=== PATIENT | female | born 1945 | race Caucasian/White ===

== ENCOUNTER 2017-12-21 07:50 | Day surgery (SDC) | payer OTHER ==
[2017-12-07 15:42] VITALS: BMI 23.0
--- NOTE | 2017-12-15 09:37 | HP ---
Admitting History and Physical - Primary Care Physician PCP: Virgilio Hager - Admission Chief Complaint: Right breast cancer History of Present Illness: 72 year old postmenapausal female who underwent a mammogram 09/2017 showing assymetry right breast 10:00. US showed 1t1o9cg density right breast 9:00 and left 1:00 density corresponding to calcifications on mammography. 09/2017 Right breast Us core at 9:00 showed Invasive ductal carcinoma ER/MT+ her 2 -. Left breast core bx showed a fibroadenoma. Breast MRI showed localized new right breast cancer 11/2017. History Source: Patient Limitations to Obtaining History: No Limitations - Past Medical History Cardiovascular: Yes: Hyperlipdemia Gastrointestinal: Yes: GERD - Smoking History Smoking history: Former smoker Have you smoked in the past 12 months: No Aproximately how many cigarettes per day: 1 If you are a former smoker, when did you quit?: 1984 - Alcohol/Substance Use Hx Alcohol Use: Yes (SOCIAL) Home Medications - Allergies Allergies/Adverse Reactions: Allergies Allergy/AdvReac Type Severity Reaction Status Date / Time amoxicillin [From Augmentin] Allergy "STOMACH Verified 12/07/17 15:55 UPSET" clavulanic acid Allergy "STOMACH Verified 12/07/17 15:55 [From Augmentin] UPSET" - Home Medications Home Medications: Ambulatory Orders Atorvastatin Ca [Lipitor] 40 mg PO DAILY 12/07/17 Famotidine [Pepcid] 40 mg PO BID 12/07/17 Family Disease History - Family Disease History Family Disease History: CA: Brother (esophageal ca43) Physical Examination Constitutional: Yes: Well Nourished Breast(s): Yes: Other (C cup breasts on palpation 5mm density lateral right breast 9:00. No adenopathy or palpable densities in either breast.) Problem List - Problems (1) Breast cancer, right Code(s): C50.911 - MALIGNANT NEOPLASM OF UNSP SITE OF RIGHT FEMALE BREAST Qualifiers: Breast location: overlapping sites of breast Patient sex: female Assessment/Plan Right breast wide excision with mammogram needle localization,sentenel node biopsy ,lymphoscintogram possible axillary node dissection possible intraop radiation
[2017-12-21] MEDS ORDERED: ISOSULFAN BLUE 10 MG/ML VIAL SQ ONE (11:26)
[2017-12-21] MEDS ORDERED: BUPIVACAINE HCL/PF 0.5% (5MG/ML) 10 ML VIAL ONE (13:07)
[2017-12-21] MEDS ORDERED: LIDOCAINE HCL 1%, 10 MG/ML (20ML VIAL) ONE (13:07)
[2017-12-21] MEDS ORDERED: ONDANSETRON 4 MG/2 ML VIAL IVPUSH PRN ×2 (15:12→16:59)
[2017-12-21] MEDS ORDERED: PROMETHAZINE HCL 25 MG/1 ML VIAL IVPUSH PRN (15:12)
[2017-12-21] MEDS ORDERED: oxyCODONE HCL 5 MG TABLET PO PRN ×2 (15:14)
[2017-12-21] MEDS ORDERED: LACTATED RINGERS SOLUTION 1,000 ML IV SCH (15:15)
--- NOTE | 2017-12-21 16:31 | OP ---
DATE OF OPERATION: 12/21/2017 PREOPERATIVE DIAGNOSIS: Right breast cancer, overlapping regions. POSTOPERATIVE DIAGNOSIS: Right breast cancer, overlapping regions. PROCEDURE: Right breast partial mastectomy with mammographic needle localization and right axillary sentinel lymph node biopsy with intraoperative radiation and tissue transfer, 4 x 3 cm, closure. ANESTHESIA: General endotracheal anesthesia. PRIMARY SURGEON: Peña Hager MD WAFER ABRADING MACHINE TENDER: ADRIÁN Pittman COMPLICATIONS: There were no complications. Briefly, the patient is a 72-year-old, G2, P1, postmenopausal female of descent. She has a family history with her brother, who had esophageal cancer. The patient was found to have a right breast 9 o'clock area of asymmetry on mammography, and ultrasound showed a 9 x 8 x 7-mm density at the right breast 9 o'clock region, 4 cm from the nipple, and ultrasound-guided core biopsy showed an infiltrating ductal cancer, moderately differentiated, which was ER/CA positive, HER-2/nabil negative. She had a left breast density in the 1 o'clock region, which was biopsied, showing a fibroadenoma. MRI showed localized disease. Patient was told of the need for a wide excision and sentinel lymph node biopsy. She was seen by Radiation Oncology preoperatively and was a candidate for the TARGIT US trial and consented. She was brought in for the procedure on December 21, 2017. In the holding area, site verification was made and informed consent was obtained. She was brought in to the operating room and laid on the OR table in the supine position. Venodynes were placed on the lower extremities prior to induction. She received general endotracheal anesthesia. Then 3 mL of Lymphazurin blue were injected intradermally around the needle localization site. Massage was instituted. Prior to the procedure, at [facility] she underwent lymphoscintigraphy with periareolar injection of technetium 99. She also underwent mammogram needle localization of the clip in the right breast 9 o'clock region. In the operating room, both breasts were sterilely prepped and draped in the usual fashion after the injection of Lymphazurin blue. Massage was instituted. She was given 1 g of Ancef prior to incision. Incision was made just below the hair-bearing area of the right axilla and dissection was undertaken, and 3 blue hot nodes were easily found in the level 1 and level 2 region of the right axilla. The 1st sentinel lymph node had a 10-second gamma count of 1473, 2nd sentinel lymph node had a 10-second gamma count of 532, 3rd sentinel lymph node had a 10-second gamma count of 287. Background count after removal of these 3 nodes was 36. These were all sent to Pathology in formalin as axillary sentinel lymph nodes. Hemostasis was achieved. At this point, a wide excision was undertaken around the needle localization of the right breast through a curvilinear incision made around the needle localization site in the right breast 9 o'clock region. Dissection was undertaken all the way down to the chest wall, with removal of the tissue around the needle localization wire. The specimen was oriented with a long lateral and short superior suture, and specimen radiograph showed removal of the clip in question. Hemostasis was achieved. At this point, separate margins were taken on the superior, inferior, medial, lateral, deep aspects, with sutures marking the biopsy cavity site, and all these margins were sent separately to Pathology in formalin. The wide excision was placed in formalin and sent to Pathology as well. At this point, the wound was copiously irrigated and hemostasis achieved. The 4 cm Intrabeam device was placed in the wound, and the breast tissue was purse-stringed around the device. Ultrasound was used and measured the skin around the device to be greater than 1 cm in all 4 quadrants. At this point, intraoperative radiation was accomplished, after about 30 minutes of intraoperative radiation. After the radiation device was removed, the breast tissue was then reapproximated using a 4 x 3 cm tissue transfer closure. The breast tissue was undermined to allow for the breast tissue closure. The breast tissue was reapproximated using interrupted 2-0 plain suture. The skin was closed using interrupted 3-0 deep dermal Vicryl suture and a running 4-0 subcuticular Biosyn suture. The axillary wound was closed in a similar fashion, and Mastisol and Steri-Strips were applied over the wound. The patient was extubated at the end of the case, and sterile dressings applied, and she was placed in a surgical bra postoperatively. The patient will be recovered in the post-anesthesia care unit and will be discharged home the same day, once discharge criteria are met. She is to follow up in the office in 1 week for a formal wound pathology check. All sponge and needle counts were correct at the end of the case and estimated blood loss was about 30 mL. She was hemodynamically stable throughout. PÑEA HAGER M.D. [id number]
[2017-12-21] MEDS ORDERED: KETOROLAC TROMETHAMINE 30 MG/1 ML VIAL IVPUSH ONE ×2 (17:05→17:30)
--- NOTE | 2017-12-21 17:09 | OP ---
DATE OF OPERATION: 12/21/2017 PREOPERATIVE DIAGNOSIS: Stage IA invasive ductal carcinoma of the right breast. POSTOPERATIVE DIAGNOSIS: Stage IA invasive ductal carcinoma of the right breast. SURGEON: Virgilio Hager MD ANESTHESIA: Generalized. SOFTWARE ADMINISTRATOR: Elías Garcia MD PROCEDURE: Intraoperative radiation therapy to the 9 o'clock lumpectomy cavity of the right breast. DESCRIPTION OF PROCEDURE: My physicist and I were called into the room after Dr. Hager had performed sentinel lymph node biopsy and lumpectomy. The specimen radiograph showed that the lesion was within the center of the specimen. Additional shave margins were obtained. Dr. Hager and I decided on a 4-cm applicator which would fit the cavity extremely well. An ultrasound was obtained with the device in place, showing that we had at least 1 cm from the skin to the applicator distances. The largest distance was 1.8 cm, and the shortest distance was 1.4 cm. These were acceptable. Prior to the procedure, my physicist performed senior quality technician checks on the machine and calculated the dose rate for the 4-cm applicator, which was 0.74 Gy per minute. This calculated the estimated time for treatment to be 27 minutes and 2 seconds. After all of the personnel were removed from the room and the device was sterilely draped and set into the patient's cavity, the machine was started. A total elapsed treatment time of 27 minutes and 6 seconds was delivered. This was because of second ionization chamber measurements. The total dose delivered to the lumpectomy cavity was 2000 cGy as prescribed by Dr. Brantley. After the procedure, the patient was returned to the surgeon. I should note that Anesthesia monitored the patient behind a glass-leaded door. There were no complications. DISPOSITION: Stable to the surgeon and then to the recovery room. We will see the patient in followup once the pathology is completed. ELÍAS GARCIA M.D. [id number]
[2017-12-21] MEDS ORDERED: DEXTROSE 5%-0.45% SALINE 1,000 ML IV SCH (17:30)
[2017-12-21 17:51] VITALS: TEMP 97.5
[2017-12-21 18:29] VITALS: BP 119/76; PULSE 76
--- NOTE | 2017-12-23 15:48 | PATH ---
Surgical Pathology Report Patient Name: EMILY GARCIA [facility]. Rec. #: [id number] /Age/Gender: 1945 (Age: 72) / F Account: [id number] Location: [facility] Taken: 12/21/2017 Received: 12/21/2017 Reported: 12/23/2017 Physicians: Virgilio Hager M.D. Specimen(s) Received A: RIGHT BREAST WIDE EXCISION B: RIGHT BREAST MEDIAL MARGIN C: RIGHT BREAST LATERAL MARGIN D: RIGHT BREAST SUPERIOR MARGIN E: RIGHT BREAST INFERIOR MARGIN F: RIGHT BREAST POSTERIOR MARGIN G: RIGHT AXILLARY SENTINEL NODE H: RIGHT AXILLARY SENTINEL NODE #2 I: RIGHT AXILLARY SENTINEL NODE #3 Clinical History Right invasive IDC Final Diagnosis A. breast, right, wide excision: Invasive ductal carcinoma, moderately differentiated (tubule score: 3/3, nuclear grade: 2/3, mitotic score: 1/3; total score: 6/9, Mark grade 2). Invasive carcinoma measures 9 mm in greatest dimension, microscopically. Ductal carcinoma in situ (DCIS), cribriform type, intermediate nuclear grade with associated calcifications is present admixed with invasive carcinoma. Surgical margins are uninvolved by carcinoma; invasive carcinoma is aT 3 mm FROM the closest (inferior) margin and DCIS is AT 2 mm from the closest (inferior) margin. see specimen B-f for final margins. Skin is present and is uninvolved by carcinoma. No definitive lymphovascular invasion is identified. Prior biopsy site changes are present. Remaining breast tissue shows intraductal papilloma and fibroadenomatoid change. PATHOLOGIC STAGE (pTNM): pT1b pN0. SEE ALSO INVASIVE CARCINOMA CASE SUMMARY BELOW. B. breast, right, medial margin, excision: Benign breast tissue. C. breast, right, lateral margin, excision: Benign predominantly fatty breast tissue and skeletal muscle. D. breast, right, superior margin, excision: Benign breast tissue. E. breast, right, inferior margin, excision: Benign breast. F. breast, right, posterior margin, excision: Benign fibroadipose tissue and skeletal muscle. G. lymph node, right axillary sentinel #1, excision: One lymph node, negative for metastatic carcinoma (0/1). H. lymph node, right axillary sentinel #2, excision: One lymph node, negative for metastatic carcinoma (0/1). I. lymph node, right axillary sentinel #3, excision: One lymph node, negative for metastatic carcinoma (0/1). Comments Breast Invasive Carcinoma: Surgical Pathology Case Summary (Based on AJCC TNM 8 th edition) Procedure _X_ Excision (less than total mastectomy) Specimen Laterality _X_ Right Tumor Size _X_ Greatest dimension of largest invasive focus >1 mm (millimeters): 9 mm Histologic Type _X_ Invasive carcinoma of no special type (ductal, not otherwise specified) Histologic Grade (Golden Histologic Score) Glandular (Acinar)/Tubular Differentiation _X_ Score 3 (<10% of tumor area forming glandular/tubular structures) Nuclear Pleomorphism _X_ Score 2 Mitotic Rate _X_ Score 1 Overall Grade _X_ Grade 2 (scores of 6 or 7) Tumor Focality _X_ Single focus of invasive carcinoma Ductal Carcinoma In Situ (DCIS) _X_ DCIS is present in specimen _X_ Negative for extensive intraductal component (EIC) Margins Invasive Carcinoma Margins _X_ Uninvolved by invasive carcinoma Distance from closest margin (millimeters): 2 mm (final inferior margin E is negative for carcinoma) DCIS Margins _X_ Uninvolved by DCIS Distance from closest margin (millimeters): 3 mm Closest margin: inferior (final inferior margin E is negative for carcinoma) Regional Lymph Nodes Number of Lymph Nodes with Macrometastases (>2 mm): 0 Number of Lymph Nodes with Micrometastases (>0.2 mm to 2 mm and/or >200 cells): 0 Number of Lymph Nodes with Isolated Tumor Cells (=0.2 mm and =200 cells): 0 Extranodal Extension: _X_ Not identified Number of Lymph Nodes Examined: 3 Number of Emily Nodes Examined : 3 Treatment Effect _X_ No known presurgical therapy Lymphovascular Invasion _X_ Not identified Pathologic Stage Classification (pTNM, AJCC 8th Edition) Primary Tumor (Invasive Carcinoma) (pT) _X_ pT1b: Tumor >5 mm but =10 mm in greatest dimension Regional Lymph Nodes (pN) Category (pN) _X_ pN0 (sn): No regional lymph node metastasis identified or ITCs only Results of ER, IN, Her2 and Ki67 studies will be reported separately in an addendum. Electronically Signed Shweta Castillo M.D. Gross Description A. Received in formalin, labeled "right breast wide excision," is a 5.0 x 3.7 x 2.5 cm. bolanos-yellow, irregular, portion of fibroadipose tissue with a needle localization wire present. There is a short suture marking the superior aspect and a long suture marking the lateral aspect, per the surgeon. The anterior surface displays a 2.8 x 0.5 cm bolanos, elliptical, unremarkable portion of skin. The specimen is inked as follows: Superior blue; inferior green; lateral red; medial yellow; deep black. The specimen is serially sectioned from anterior to deep. Sectioning reveals a 0.9 x 0.7 x 0.7 cm bolanos, firm, well-circumscribed mass containing a leyva metallic biopsy clip. The mass is 0.3 cm from the inferior margin, 0.4 cm from the medial margin and is 0.8 cm from the superior margin. The remaining margins appear widely clear of the mass. Meeting Facilitator sections are submitted in 6 cassettes as follows: 1-2-one full-face section of mass each (each with inferior and medial margins); 3-superior margin; 4-lateral margin; 5-skin; 6-deep margin. Time to formalin fixation: Not given Total formalin fixation time: Approximately 24-34 hours B. Received in formalin labeled "right breast medial margin," is a 2.5 x 1.2 x 0.6 cm portion of fibroadipose tissue with a suture marking the biopsy cavity side, per the surgeon. The new margin is inked blue and the specimen is serially sectioned. The specimen is entirely submitted in 2 cassettes. C. Received in formalin labeled "right breast lateral margin," is a 2.3 x 1.4 x 0.8 cm portion of fibroadipose tissue with a suture marking the biopsy cavity side, per the surgeon. The new margin is inked blue and the specimen is serially sectioned. The specimen is entirely submitted in 2 cassettes. D. Received in formalin labeled "right breast superior margin," is a 1.8 x 1.5 x 0.4 cm portion of fibroadipose tissue with a suture marking the biopsy cavity side, per the surgeon. The new margin is inked blue and the specimen is serially sectioned. The specimen is entirely submitted in 2 cassettes. E. Received in formalin labeled "right breast inferior margin," is a 2.8 x 2.0 x 1.2 cm portion of fibroadipose tissue with a suture marking the biopsy cavity side, per the surgeon. The new margin is inked blue and the specimen is serially sectioned. The specimen is entirely submitted in one cassette. F. Received in formalin labeled "right breast posterior margin," is a 2.1 x 1.1 x 0.6 cm portion of fibroadipose tissue with a suture marking the biopsy cavity side, per the surgeon. The new margin is inked blue and the specimen is serially sectioned. The specimen is entirely submitted in 2 cassettes. G. Received in formalin labeled "right axillary sentinel node #1," is a 1.0 x 0.6 x 0.6 cm lymph node with attached fat. The specimen is bisected and entirely submitted in one cassette. H. Received in formalin labeled "right axillary sentinel node #2," is a 0.7 x 0.6 x 0.3 cm lymph node with attached fat. The specimen is submitted in toto in one cassette. I. Received in formalin labeled "right axillary sentinel node #3," is a 0.6 x 0.5 x 0.3 cm lymph node with attached fat. The specimen is submitted in toto in cassette. 12/22/2017 [facility]12/22/2017
== END 2017-12-21 18:32 | disposition home or self-care (01) ==
LOC: FASU 07:50
PROVIDERS: ATTEND Surgery Surgical Oncology
PROC: 0HBT0ZZ Excision of Right Breast, Open Approach (ICD-10-PCS; principal; 2017-12-21 14:30)
PROC: DMY17ZZ Contact Radiation of Right Breast (ICD-10-PCS; 2017-12-21 14:30)
PROC: 0JX60ZB Transfer Chest Subcutaneous Tissue and Fascia with Skin and Subcutaneous Tissue, Open Approach (ICD-10-PCS; 2017-12-21 14:30)
DX: C50.811 Malignant neoplasm of overlapping sites of right female breast (principal)
CPT/HCPCS: 19281; 78195-TC; 88307-TC; 88342-TC; A9541